=== PATIENT | male | born 1960 | race Two or more races ===

== ENCOUNTER 2020-12-13 16:36 | Inpatient (IN) | payer OTHER ==
[~2020-12-13] VITALS: Ht 188 cm; Wt 93.0 kg
[2020-12-15] MEDS ORDERED: FINASTERIDE1 MG (14:51)
[2020-12-15] MEDS ORDERED: MONTELUKAST SOD10 MG (14:51)
[2020-12-15] MEDS ORDERED: ROSUVASTATIN CA40 MG (14:52)
[2020-12-15] MEDS ORDERED: FENOFIBRATE145 MG (14:52)
[2020-12-15] MEDS ORDERED: AZELASTIN-FLUTI23 GM (14:52)
[2020-12-15] MEDS ORDERED: LEVO-T25 MCG (14:52)
[2020-12-15] MEDS ORDERED: LISINOPRIL5 MG (14:52)
== END 2020-12-19 10:27 | disposition home or self-care (01) | DRG 440 ==
LOC: ER 16:36 → SURG 23:52 → SEC-K 23:52 → MEDI 12-14 00:51 → SEC-K 12-14 01:31 → SURG 12-14 02:01
PROVIDERS: ADMIT Internal Medicine; ATTEND Internal Medicine
PROC: BW21YZZ Computerized Tomography (CT Scan) of Abdomen and Pelvis using Other Contrast (ICD-10-PCS; principal; 2020-12-13)
DX: K85.80 Other acute pancreatitis without necrosis or infection (principal); I10 Essential (primary) hypertension; Z20.822 Contact with and (suspected) exposure to COVID-19

== ENCOUNTER 2021-11-06 13:01 | Inpatient (IN) | payer OTHER ==
[~2021-11-06] VITALS: Ht 190.5 cm; Wt 81.6 kg
[~2021-11-06 13:01] MED LIST: AZELASTIN-FLUTI23 GM; FENOFIBRATE145 MG; FINASTERIDE1 MG; LEVO-T25 MCG; LISINOPRIL5 MG; MONTELUKAST SOD10 MG; ROSUVASTATIN CA40 MG
== END 2021-11-10 23:44 | disposition home or self-care (01) | DRG 440 ==
LOC: ER 13:01 → MEDJ 23:14 → SEC-K 23:14 → MEDI 11-07 05:49 → MEDJ 11-07 07:56 → SEC-K 11-07 08:02 → MEDJ 11-07 11:38
PROVIDERS: ADMIT Internal Medicine; ATTEND Internal Medicine
PROC: BW40ZZZ Ultrasonography of Abdomen (ICD-10-PCS; principal; 2021-11-06)
PROC: BF37ZZZ Magnetic Resonance Imaging (MRI) of Pancreas (ICD-10-PCS; 2021-11-06)
DX: K85.80 Other acute pancreatitis without necrosis or infection (principal); I10 Essential (primary) hypertension; E78.49 Other hyperlipidemia; E86.0 Dehydration; Z20.822 Contact with and (suspected) exposure to COVID-19